=== PATIENT | female | born 1940 | race Caucasian/White ===

== ENCOUNTER → 2016-06-04 | Outpatient (CLI) | payer MEDICARE, BC | LOC: MC.RAD 10:13 | DX: Z12.31 Encounter for screening mammogram for malignant neoplasm of breast (principal); R92.1 Mammographic calcification found on diagnostic imaging of breast ==

== ENCOUNTER → 2017-07-11 | Outpatient (CLI) | payer MEDICARE, BC | LOC: MC.RAD 11:20 | DX: Z12.31 Encounter for screening mammogram for malignant neoplasm of breast (principal) ==

== ENCOUNTER → 2018-07-12 | Outpatient (CLI) | payer MEDICARE, BC | LOC: MC.RAD 10:45 | DX: Z12.31 Encounter for screening mammogram for malignant neoplasm of breast (principal) ==

== ENCOUNTER 2018-11-22 08:48 | Inpatient (IN) | payer MEDICARE, BC ==
[~2018-11-22] VITALS: Ht 152.4 cm; Wt 66.7 kg
--- NOTE | 2018-11-22 09:00 | NUR ---
PATIENT ADMITED INTO ROOM 319 FOR SOTOLOL TRIAL. VSS. HEAD TO TOE ASSESSMENT WNL. 20 GAUGE IV STARTED ON FIRST ATTEMPT. ORDERS ENTERED. TELE INPLACE. RT CALLED FOR EKG. DR.HURTIG REEVES.
[2018-11-22 09:19] VITALS: BP 126/49; PULSE 80; TEMP 98
[2018-11-22] MEDS ORDERED: COUMADIN 5MG5 MG/TAB PO ×2 (09:45→09:46)
[2018-11-22] MEDS ORDERED: PROTONIX 40MG T40 MG PO (09:46)
[2018-11-22] MEDS ORDERED: TOPROL XL 25MG25 MG PO (09:47)
[2018-11-22] MEDS ORDERED: PRINZIDE 12.5 M1 TA1 PO (09:48)
[2018-11-22] MEDS ORDERED: ZOCOR 20MG20 MG PO (09:48)
[2018-11-22] MEDS ORDERED: OMEGA-3 1000 MG1 CAP PO (09:48)
[2018-11-22] MEDS ORDERED: NATURAL E400 IU PO (09:49)
--- NOTE | 2018-11-22 09:59 | NUR ---
LAB AT BEDSIDE.
[2018-11-22 10:15] LABS: BASO % 0.6 % (0.0-2.0); EOS # 0.2 (0.0-0.7); EOS % 3.2 % (0-4.0); GRAN # 4.5 (1.4-6.5); GRAN % 62.5 % (42.2-75.2); HEMOGLOBIN 11.9 g/dl (12.5-16.0); LYMPH # 1.8 (1.2-3.4); MEAN CELL VOLUME 92 fl (80.0-100.0); MEAN CORPUSCULAR HEMOGLOBIN 30 pg (27.0-31.0); MEAN CORPUSCULAR HGB CONC 33 g/dl (33.0-37.0); MEAN PLATELET VOLUME 9.5 fl (7.4-10.4); MONO # 0.6 (0.1-0.6); MONO % 8.3 % (1.7-9.3); PLATELET COUNT 205 K/mm3 (130-400); RED BLOOD COUNT 3.92 M/mm3 (4.10-5.30); REDCELL DISTRIBUTION WIDTH-CV 13.2 % (11.5-14.5)
[2018-11-22 10:18] LABS: INR 3.7 (0.8-3.0)
[2018-11-22 10:25] LABS: HEMATOCRIT 35.9 % (37.0-47.0)
[2018-11-22 10:27] LABS: PROTHROMBIN TIME 45.6 SECONDS (9.7-12.8)
[2018-11-22 10:28] LABS: ALBUMIN 4.3 gm/dL (3.5-5.0); BILIRUBIN,TOTAL 1.2 mg/dL (0.0-1.0); CALCIUM 9.2 mg/dL (8.4-10.2); CREATININE, serum 0.8 (0.52-1.25); MAGNESIUM 1.8 mg/dL (1.6-2.3); POTASSIUM 3.8 mmol/L (3.4-5.0); TOTAL PROTEIN 7.2 gm/dL (6.4-8.2)
[2018-11-22 11:16] VITALS: BP 125/65; PULSE 69; TEMP 97.9
[2018-11-22 15:58] VITALS: BP 125/56; PULSE 66; TEMP 97.6
[2018-11-22 21:00] VITALS: BP 127/57; PULSE 64; TEMP 97.7
--- NOTE | 2018-11-22 23:09 | NUR ---
Shift assessment complete. Second dose of Sotalol given. RT notified of EKG to be done in 2 hours. Denies any pain, SOA.
[2018-11-23] VITALS (14 sets, daily range): BP systolic 104–141; BP diastolic 42–67; PULSE 56–85; TEMP 97.4–98.5
--- NOTE | 2018-11-23 06:25 | NUR ---
Pt states she had a fair night. Awake watching TV. Tele shows SR with HR in the 50's. Denies any needs at this time. Call light in reach. EKG done this AM.
--- NOTE | 2018-11-23 08:06 | NUR ---
Assessment completed, alert/oriented, vital signs stable, denies any chest pain /discomfomrt or palpitations this morning, heart RRR/ SR on tele, distal pulses are palpable, lungs CTA/ denies any SOA or resp.difficulty, EKG done and Qtc 448 this morning, patient is having a lexiscan this mornign and we momo give Sotalol dose after stress test completed, she is NPO / no caffeined, she denies other needs and understands plan of care
[2018-11-23 08:39] LABS: BASO # 0.1 (0.0-0.2); BASO % 0.8 % (0.0-2.0); EOS # 0.3 (0.0-0.7); EOS % 4.1 % (0-4.0); GRAN # 4.6 (1.4-6.5); GRAN % 60.3 % (42.2-75.2); HEMOGLOBIN 11.4 g/dl (12.5-16.0); LYMPH % 26.7 % (20.0-51.0); MEAN CELL VOLUME 93 fl (80.0-100.0); MEAN CORPUSCULAR HEMOGLOBIN 30 pg (27.0-31.0); MEAN CORPUSCULAR HGB CONC 33 g/dl (33.0-37.0); MEAN PLATELET VOLUME 9.6 fl (7.4-10.4); MONO # 0.6 (0.1-0.6); MONO % 7.7 % (1.7-9.3); PLATELET COUNT 202 K/mm3 (130-400); RED BLOOD COUNT 3.76 M/mm3 (4.10-5.30); REDCELL DISTRIBUTION WIDTH-CV 13.1 % (11.5-14.5)
[2018-11-23 08:41] LABS: INR 3.1 (0.8-3.0); PROTHROMBIN TIME 37.6 SECONDS (9.7-12.8)
[2018-11-23 08:44] LABS: HEMATOCRIT 34.9 % (37.0-47.0)
[2018-11-23 08:47] LABS: CALCIUM 9.1 mg/dL (8.4-10.2); CREATININE, serum 0.79 (0.52-1.25); MAGNESIUM 1.9 mg/dL (1.6-2.3); POTASSIUM 4.2 mmol/L (3.4-5.0)
--- NOTE | 2018-11-23 08:54 | NUR ---
SW met with the patient to discuss discharge plan. The patient lives alone outside of [place]. She states that her son, Jasperet Whaley (ph#[phone]), and his family live closeby. She reports independence with ADLs and has a cane, walker, and wheelchair available if needed. The patient's PCP is Dr. Marilu Mchugh and she receives her medications at [facility]. She reports no difficulties obtaining her meds. The patient does not have advanced directives in EMR, but she states that she believes she has them completed and that her DPOA-HC is one of her children. She states that she has three children. Jaspreet Whaley, Destiny Barboza (lives in [place]), and Juanjose Whaley (lives in [place]. The patient plans to return home upon discharge. No additional needs at this time.
--- NOTE | 2018-11-23 11:49 | NUR ---
patient returned from janine scan stress test, has been by to see patient and stated she could go ahead and eat and he would review stress test later today
--- NOTE | 2018-11-23 21:00 | NUR ---
Shift assessment complete. Pt reports feeling much better tonight. States she did not realize that she had not been feeling well. QTC today was 448. Tele shows rate in the 70's. Denies any c/o.
[2018-11-24 05:05] VITALS: BP 127/49; PULSE 55; TEMP 97.9
[2018-11-24 06:10] LABS: BASO # 0.1 (0.0-0.2); BASO % 0.9 % (0.0-2.0); EOS # 0.4 (0.0-0.7); EOS % 5.2 % (0-4.0); GRAN # 3.4 (1.4-6.5); LYMPH # 2.6 (1.2-3.4); LYMPH % 36.9 % (20.0-51.0); MEAN CELL VOLUME 92 fl (80.0-100.0); MEAN CORPUSCULAR HEMOGLOBIN 30 pg (27.0-31.0); MEAN CORPUSCULAR HGB CONC 33 g/dl (33.0-37.0); MEAN PLATELET VOLUME 9.8 fl (7.4-10.4); MONO # 0.6 (0.1-0.6); MONO % 8.6 % (1.7-9.3); PLATELET COUNT 193 K/mm3 (130-400); RED BLOOD COUNT 3.64 M/mm3 (4.10-5.30)
[2018-11-24 06:13] LABS: INR 2.2 (0.8-3.0); PROTHROMBIN TIME 25.8 SECONDS (9.7-12.8)
[2018-11-24 06:15] LABS: HEMATOCRIT 33.4 % (37.0-47.0)
[2018-11-24 06:24] LABS: CALCIUM 8.8 mg/dL (8.4-10.2); CREATININE, serum 0.81 (0.52-1.25); MAGNESIUM 1.9 mg/dL (1.6-2.3); POTASSIUM 3.9 mmol/L (3.4-5.0)
[2018-11-24 07:26] VITALS: BP 122/44; PULSE 55; TEMP 98
--- NOTE | 2018-11-24 09:53 | NUR ---
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 Patient was receptive to prayer and for [employer] to keep her in her prayers.
--- NOTE | 2018-11-24 09:57 | NUR ---
Upon entry, patient was sitting on side of bed eating breakfast. Has no pain. Respirations are even and non labored. States she is feeling the best she has in a long time. No needs identified. Call light and personal items are within reach.
[2018-11-24 13:30] VITALS: BP 141/63; PULSE 55; TEMP 97.9
[2018-11-24] MEDS ORDERED: BETAPACE 80MG80 MG PO (13:34)
--- NOTE | 2018-11-24 15:41 | NUR ---
Patient dischraged home at 1445, daughter is at bedside to drive home. Personal belongings sent with patient. Discharge instructions given with verbalized understanding by patient. Daughter has multiple questions and needed a lot of teaching. Patient left floor via wheelchair and was taken home via private vehicle.
== END 2018-11-24 14:45 | disposition home or self-care (01) | DRG 310 ==
LOC: MEDICAL 08:48
PROVIDERS: ADMIT Internal Medicine Cardiovascular Disease
DX: I48.0 Paroxysmal atrial fibrillation (principal); I47.1 Supraventricular tachycardia; K21.9 Gastro-esophageal reflux disease without esophagitis; I10 Essential (primary) hypertension; E78.5 Hyperlipidemia, unspecified; E11.9 Type 2 diabetes mellitus without complications; I45.10 Unspecified right bundle-branch block; Z79.01 Long term (current) use of anticoagulants
CPT/HCPCS: A9500; J2785

== ENCOUNTER 2018-12-01 09:05 | Observation (INO) | payer MEDICARE, BC ==
[~2018-12-01] VITALS: Ht 152.4 cm; Wt 66.6 kg
[2018-12-01] VITALS (11 sets, daily range): BP systolic 104–160; BP diastolic 45–93; PULSE 44–61; TEMP 97.5–98.3
[~2018-12-01 09:05] MED LIST: BETAPACE 80MG80 MG PO; COUMADIN 5MG5 MG/TAB PO; NATURAL E400 IU PO; OMEGA-3 1000 MG1 CAP PO; PRINZIDE 12.5 M1 TA1 PO; PROTONIX 40MG T40 MG PO; TOPROL XL 25MG25 MG PO; ZOCOR 20MG20 MG PO
[2018-12-01] MEDS ORDERED: TOPROL XL 25MG25 MG PO (11:45)
--- NOTE | 2018-12-01 11:50 | NUR ---
SEE ADMISSION ASSESSMENT B FOR SHIFT ASSESSMENT. CONSENT FORM FOR PACEMAKER PLACEMENT SIGNED AND ON THE PATIENTS CHART. PRE-OP MEDICATIONS GIVEN. PATIENT TAKEN TO BOAT LOADER HELPER VIA BED. WILL WAIT FOR ARRIVAL BACK TO ROOM 357.
--- NOTE | 2018-12-01 12:11 | NUR ---
SEE MERGE REPORT FOR MEDICATION ADMINISTRATION TIMES WELL INTRA/POST SEDATION ASSESSMENTS.
--- NOTE | 2018-12-01 13:15 | NUR ---
PATIENT ARRIVED BACK TO ROOM 357 VIA BED FROM PACEMAKER IMPLANT. POST-OP VSS. LEFT CHEST DRESSING IS CD&I. FAMILY PRESENT AT THE BEDSIDE. PATIENT DENIES ANY OTHER NEEDS AT THIS TIME.
--- NOTE | 2018-12-01 17:13 | NUR ---
POST OP VITAL SIGNS STABLE AND COMPLETE. PATIENT RESTING IN BED. LEFT CHEST PACEMAKER DRESSING IS CD&I. LEFT ARM TO SLING. CALL LIGHT WITHIN REACH. PATIENT DENIES ANY NEEDS AT THIS TIME.
--- NOTE | 2018-12-01 17:35 | NUR ---
REPORT GIVEN TO ARAVIND BOJORQUEZ.
--- NOTE | 2018-12-01 19:10 | NUR ---
NO C/O PAIN AT THIS TIME. CLEAN UP HELPER BANQUET REPORT GIVEN TO NURSE. NO ISSUES OR CONSERNS VOICED.
--- NOTE | 2018-12-01 19:50 | NUR ---
Received report from Suzette. Pt is in bed awake and visiting with son and daughter who are at bedside. Pt states "I would like some pain medication to stay on top of the pain." Pt surgical site is dressed with gauze and tape, no drainage, clean, dry and intact. Assessment complete. Pt voices no concerns other than pain and discomfort. Call light and personal belongings are within reach. No other concerns at this time.
[2018-12-02 00:28] VITALS: BP 104/42; PULSE 60; TEMP 97.7
--- NOTE | 2018-12-02 01:00 | NUR ---
Pt sleeping in bed. Daughter sleeping on sofa in pt room. Pt asked for Tylenol rather than Herrick for pain management to take between Herrick. Tylenol administered, and pt voices no concerns at this time. Call light and personal belongings within reach. No other concerns at this time.
[2018-12-02 04:52] VITALS: BP 125/55; PULSE 59; TEMP 97.7
[2018-12-02 06:40] LABS: BASO # 0.1 (0.0-0.2); BASO % 0.6 % (0.0-2.0); EOS # 0.3 (0.0-0.7); EOS % 3.3 % (0-4.0); GRAN # 4.8 (1.4-6.5); GRAN % 58.1 % (42.2-75.2); HEMOGLOBIN 11.2 g/dl (12.5-16.0); LYMPH # 2.3 (1.2-3.4); LYMPH % 27.6 % (20.0-51.0); MEAN CELL VOLUME 90 fl (80.0-100.0); MEAN CORPUSCULAR HEMOGLOBIN 31 pg (27.0-31.0); MEAN CORPUSCULAR HGB CONC 34 g/dl (33.0-37.0); MONO # 0.8 (0.1-0.6); PLATELET COUNT 176 K/mm3 (130-400); RED BLOOD COUNT 3.66 M/mm3 (4.10-5.30); REDCELL DISTRIBUTION WIDTH-CV 12.8 % (11.5-14.5)
[2018-12-02 06:45] LABS: INR 1.4 (0.8-3.0); PROTHROMBIN TIME 16.3 SECONDS (9.7-12.8)
[2018-12-02 06:46] LABS: HEMATOCRIT 32.9 % (37.0-47.0)
[2018-12-02 06:48] LABS: CALCIUM 8.8 mg/dL (8.4-10.2); CREATININE, serum 0.75 (0.52-1.25); POTASSIUM 3.9 mmol/L (3.4-5.0)
[2018-12-02 07:19] VITALS: BP 121/60; PULSE 59; TEMP 98.1
--- NOTE | 2018-12-02 07:55 | NUR ---
Report given to Suzette. Pt states she is ready to go home. Plan of care discussed for chest xray as well as a EKG and pacer check. Pt states she was in very little pain as she asked for medication to stay on top of the pain. Pt's daughter stayed at bedside throughout the night. Pt voices no further questions or concerns. No further concerns at this time.
[2018-12-02] MEDS ORDERED: CEPHALEXIN500 M1 PO (11:14)
[2018-12-02] MEDS ORDERED: BETAPACE 120MG120 MG PO (11:15)
[2018-12-02 13:00] VITALS: BP 119/57; PULSE 60; TEMP 98.4
--- NOTE | 2018-12-02 16:24 | NUR ---
Plan:To return home with grandson as care support. Patients daughter Destiny is on EMR [phone]. Patient did report having a DPOA. PAtient resides in [place]. Assess: SW met with patient with her daughter Destiny at bedside. Patient gave permission to discuss information infront of daughter. Patient reports that she does have a walker and wheelchair at home, however she does not use them. PAtient did have questions about an emergency lifeline button. Patient reports that her PCP is Dr. Mchugh, and she gets her medications from [facility] with no complications. Patient reports that she does not have a follow up appointment scheduled. Discussed HHS agencies in [facility] and Patient listed 1st choice as [facility]. PAtient denied any other concerns. Action: SW contacted [facility] and Spoke with [phone] who discussed steps for managing care. She reports that she will contact provider to begin referral process. Patients rani was informed.
--- NOTE | 2018-12-02 17:29 | NUR ---
PT DISCHARGED AT THIS TIME. IV AND TELE REMOVED WITHOUT ISSUE. NO C/O PAIN. DAUGHTER PICKED UP PERSCRIPTIONS AT PHARMACY PRIOR TO PT DC'ING. NO ISSUES VOICED THIS AFTERNOON.
== END 2018-12-02 17:30 | disposition home or self-care (01) ==
LOC: MEDICAL 09:05
PROVIDERS: Physician Assistant; ADMIT Hospitalist
DX: I49.5 Sick sinus syndrome (principal); K21.9 Gastro-esophageal reflux disease without esophagitis; I10 Essential (primary) hypertension; E78.5 Hyperlipidemia, unspecified; E11.9 Type 2 diabetes mellitus without complications; I48.0 Paroxysmal atrial fibrillation; Z79.01 Long term (current) use of anticoagulants; Z82.49 Family history of ischemic heart disease and other diseases of the circulatory system; D64.9 Anemia, unspecified
CPT/HCPCS: G0378; G0379; J0690; J2250; J2405; J3010; J3430; J7030; Q9967

== ENCOUNTER 2018-12-02 21:50 | Inpatient (IN) | payer MEDICARE, BC ==
[~2018-12-02] VITALS: Ht 152.4 cm; Wt 63.6 kg
[~2018-12-02 21:50] MED LIST changes: +BETAPACE 120MG120 MG PO; +CEPHALEXIN500 M1 PO
[2018-12-02 23:16] LABS: BASO # 0.1 (0.0-0.2); BASO % 0.6 % (0.0-2.0); EOS # 0.3 (0.0-0.7); EOS % 2.8 % (0-4.0); GRAN # 8.7 (1.4-6.5); GRAN % 72.8 % (42.2-75.2); HEMOGLOBIN 11.8 g/dl (12.5-16.0); LYMPH # 1.8 (1.2-3.4); LYMPH % 15.4 % (20.0-51.0); MEAN CELL VOLUME 88 fl (80.0-100.0); MEAN CORPUSCULAR HEMOGLOBIN 31 pg (27.0-31.0); MEAN CORPUSCULAR HGB CONC 35 g/dl (33.0-37.0); MEAN PLATELET VOLUME 10.1 fl (7.4-10.4); MONO % 8.1 % (1.7-9.3); PLATELET COUNT 173 K/mm3 (130-400); REDCELL DISTRIBUTION WIDTH-CV 12.7 % (11.5-14.5)
[2018-12-02 23:17] LABS: HEMATOCRIT 33.6 % (37.0-47.0)
[2018-12-02 23:21] LABS: INR 1.4 (0.8-3.0); PROTHROMBIN TIME 15.9 SECONDS (9.7-12.8)
[2018-12-02 23:29] LABS: ALANINE AMINOTRANSFERASE 11 U/L (9-52); ALBUMIN 3.9 gm/dL (3.5-5.0); ALKALINE PHOSPHATASE 80 U/L (50-136); ANION GAP 9 mmol/L (7-16); AST,SGOT 24 U/L (15-37); BILIRUBIN,TOTAL 0.9 mg/dL (0.0-1.0); BLOOD UREA NITROGEN 14 mg/dL (7-17); CARBON DIOXIDE 26 mmol/L (22-30); CHLORIDE 94 mmol/L (98-107); CREATININE, serum 0.67 (0.52-1.25); GLUCOSE 141 mg/dL (74-106); LIPASE 53 U/L (23-300); POTASSIUM 3.8 mmol/L (3.4-5.0); SODIUM 129 mmol/L (137-145)
[2018-12-02 23:31] LABS: C-REACTIVE PROTEIN 0.5 mg/dL (0.0-0.9)
[2018-12-02 23:37] LABS: TROPONIN-I < 0.012 ng/mL (0.000-0.035)
[2018-12-03] VITALS (8 sets, daily range): BP systolic 95–146; BP diastolic 42–78; PULSE 58–107; TEMP 97.6–99.7
[2018-12-03 01:10] LABS: COLLECTION METHOD CLEAN CATCH
[2018-12-03 01:15] LABS: MUCOUS Present /lpf; PH 6 (5-8); SQUAMOUS EPITHELIAL None Seen /hpf; URINE APPEARANCE Clear; URINE BACTERIA None Seen /hpf; URINE BILIRUBIN Negative (NEGATIVE); URINE BLOOD 1+ (NEGATIVE); URINE COLOR Yellow; URINE GLUCOSE Negative (NEGATIVE); URINE KETONE Negative (NEGATIVE); URINE LEUKOCYTE ESTERASE Negative (NEGATIVE); URINE NITRATE Negative (NEGATIVE); URINE PROTEIN(semi-quant) Negative (NEGATIVE); URINE RBC 0-2 /hpf; URINE UROBILINOGEN Negative (NEGATIVE)
[2018-12-03 08:02] LABS: BASO # 0.1 (0.0-0.2); BASO % 0.5 % (0.0-2.0); EOS # 0.3 (0.0-0.7); EOS % 2.9 % (0-4.0); GRAN # 6.2 (1.4-6.5); GRAN % 64.6 % (42.2-75.2); LYMPH # 2.1 (1.2-3.4); MEAN CELL VOLUME 90 fl (80.0-100.0); MEAN CORPUSCULAR HEMOGLOBIN 30 pg (27.0-31.0); MEAN CORPUSCULAR HGB CONC 34 g/dl (33.0-37.0); MEAN PLATELET VOLUME 10.1 fl (7.4-10.4); MONO # 0.9 (0.1-0.6); MONO % 9.5 % (1.7-9.3); PLATELET COUNT 165 K/mm3 (130-400); RED BLOOD COUNT 3.63 M/mm3 (4.10-5.30); REDCELL DISTRIBUTION WIDTH-CV 12.7 % (11.5-14.5)
[2018-12-03 08:05] LABS: HEMATOCRIT 32.6 % (37.0-47.0)
[2018-12-03 08:12] LABS: ALBUMIN 3.7 gm/dL (3.5-5.0); BILIRUBIN,TOTAL 1.2 mg/dL (0.0-1.0); CALCIUM 8.7 mg/dL (8.4-10.2); CREATININE, serum 0.74 (0.52-1.25); POTASSIUM 3.7 mmol/L (3.4-5.0); TOTAL PROTEIN 6.4 gm/dL (6.4-8.2)
[2018-12-04 04:00] VITALS: BP 116/58; PULSE 59; TEMP 97.5
[2018-12-04 07:07] VITALS: BP 112/69; PULSE 62; TEMP 97.9
[2018-12-04 07:08] LABS: BASO # 0.1 (0.0-0.2); BASO % 0.8 % (0.0-2.0); EOS # 0.4 (0.0-0.7); EOS % 4.5 % (0-4.0); GRAN # 4.6 (1.4-6.5); GRAN % 57.6 % (42.2-75.2); HEMOGLOBIN 10.5 g/dl (12.5-16.0); LYMPH # 2.1 (1.2-3.4); LYMPH % 26.5 % (20.0-51.0); MEAN CELL VOLUME 90 fl (80.0-100.0); MEAN CORPUSCULAR HEMOGLOBIN 30 pg (27.0-31.0); MEAN CORPUSCULAR HGB CONC 34 g/dl (33.0-37.0); MONO # 0.8 (0.1-0.6); MONO % 10.3 % (1.7-9.3); PLATELET COUNT 154 K/mm3 (130-400); RED BLOOD COUNT 3.45 M/mm3 (4.10-5.30); REDCELL DISTRIBUTION WIDTH-CV 12.9 % (11.5-14.5)
[2018-12-04 07:27] LABS: CALCIUM 8.6 mg/dL (8.4-10.2); CREATININE, serum 0.86 (0.52-1.25); POTASSIUM 3.8 mmol/L (3.4-5.0)
[2018-12-04 10:08] LABS: INR 1.8 (0.8-3.0); PROTHROMBIN TIME 21.7 SECONDS (9.7-12.8)
[2018-12-04 12:27] VITALS: BP 114/61; PULSE 60; TEMP 98
[2018-12-04] MEDS ORDERED: TYLENOL 325MG325 MG PO (16:47)
[2018-12-04] MEDS ORDERED: NORCO 325 MG-51 TAB PO (16:47)
== END 2018-12-04 17:15 | DRG 948 ==
LOC: COL.ER 21:50 → MEDICAL 12-03 02:30
PROVIDERS: Emergency Medicine; Hospitalist; Nurse Practitioner Family; ADMIT Student in an Organized Health Care Education/Training Program
PROC: 4B02XSZ Measurement of Cardiac Pacemaker, External Approach (ICD-10-PCS; principal; 2018-12-03)
DX: G89.18 Other acute postprocedural pain (principal); E87.1 Hypo-osmolality and hyponatremia; D72.829 Elevated white blood cell count, unspecified; I48.0 Paroxysmal atrial fibrillation; K21.9 Gastro-esophageal reflux disease without esophagitis; I45.10 Unspecified right bundle-branch block; I10 Essential (primary) hypertension; E78.5 Hyperlipidemia, unspecified; E11.9 Type 2 diabetes mellitus without complications; D64.9 Anemia, unspecified; Z79.01 Long term (current) use of anticoagulants; Z95.0 Presence of cardiac pacemaker
CPT/HCPCS: 99222-AI; 99239; J2405; J2543; J3010; J3370; J7030; J7050

== ENCOUNTER → 2019-09-17 | Outpatient (CLI) | payer MEDICARE, BC ==
[~2019-09-17] MED LIST changes: +NORCO 325 MG-51 TAB PO; +TYLENOL 325MG325 MG PO
== END ==
LOC: MC.RAD 09:56
DX: Z12.31 Encounter for screening mammogram for malignant neoplasm of breast (principal)

== ENCOUNTER 2020-10-07 08:08 | Day surgery (SDC) | payer MEDICARE, BC ==
[~2020-10-07] VITALS: Ht 152.4 cm; Wt 71.9 kg
[2020-10-07] MEDS ORDERED: PRINZIDE 25 MG-1 TAB PO (08:50)
[2020-10-07] MEDS ORDERED: COUMADIN 22.5 MG/TAB PO (08:52)
[2020-10-07] MEDS ORDERED: VITAMIN C500 MG PO (08:53)
[2020-10-07] MEDS ORDERED: MAG-OX 400400 MG/TAB PO (08:53)
[2020-10-07] MEDS ORDERED: VITAMIN D31000 I1 PO (08:54)
[2020-10-07] MEDS ORDERED: PHARMASSURE CHE30 MG PO (08:55)
[2020-10-07 09:25] VITALS: BP 133/72; PULSE 71; TEMP 97.3
[2020-10-07 10:35] VITALS: BP 130/69; PULSE 80; TEMP 97.9
--- NOTE | 2020-10-07 10:35 | NUR ---
PATIENT BROUGHT BACK FROM ENDO SUITE VIA CART. PLACED ON MONITORS, VITAL SIGNS STABLE. IV INFUSING TO RIGHT AC WITHOUT DIFFICULTY. YOCASTA AT BEDSIDE FOR REPORT. SON AT BEDSIDE TO DRIVE PATIENT HOME. DR. AGUILAR AT BEDSIDE TO EXPLAIN RESULTS. PATIENT STATES SHE WANTS COFFEE, AND A MUFFIN. WARM BLANKET PROVIDED, CALL MIMS WITHIN REACH. WILL CONTINUE TO MONITOR.
[2020-10-07 10:50] VITALS: BP 132/74; PULSE 80
--- NOTE | 2020-10-07 10:50 | NUR ---
PATIENT TOLERATING FOOD AND DRINK WITHOUT DIFFICULTY. WILL CONTINUE TO MONITOR.
[2020-10-07 11:05] VITALS: BP 126/64; PULSE 88
--- NOTE | 2020-10-07 11:05 | NUR ---
PT STATES SHE FEELS READY TO GO HOME AT THIS TIME. IV REMOVED. DISCHARGE INSTRUCTIONS REVIEWED WITH PATIENT AND SON. PATIENT TO GET DRESSED AT THIS TIME.
--- NOTE | 2020-10-07 11:20 | NUR ---
PATIENT BROUGHT DOWN TO LOBBY VIA WHEEL CHAIR. SON AT FRONT DOOR TO DRIVE PATIENT HOME. ALL BELONGINGS IN HAND.
== END 2020-10-07 11:20 | disposition home or self-care (01) ==
LOC: SDCO 08:08
DX: Z12.11 Encounter for screening for malignant neoplasm of colon (principal); K55.20 Angiodysplasia of colon without hemorrhage; K64.0 First degree hemorrhoids; K57.30 Diverticulosis of large intestine without perforation or abscess without bleeding; M19.90 Unspecified osteoarthritis, unspecified site; I48.91 Unspecified atrial fibrillation; E11.9 Type 2 diabetes mellitus without complications; K21.9 Gastro-esophageal reflux disease without esophagitis; E78.5 Hyperlipidemia, unspecified; I10 Essential (primary) hypertension; I34.0 Nonrheumatic mitral (valve) insufficiency; M19.049 Primary osteoarthritis, unspecified hand; G47.33 Obstructive sleep apnea (adult) (pediatric); Z99.89 Dependence on other enabling machines and devices; Z79.01 Long term (current) use of anticoagulants; Z90.89 Acquired absence of other organs; Z79.899 Other long term (current) drug therapy
CPT/HCPCS: J7120

== ENCOUNTER → 2020-10-14 | Outpatient (CLI) | payer MEDICARE, BC ==
[~2020-10-14] MED LIST changes: +COUMADIN 22.5 MG/TAB PO; +MAG-OX 400400 MG/TAB PO; +PHARMASSURE CHE30 MG PO; +PRINZIDE 25 MG-1 TAB PO; +VITAMIN C500 MG PO; +VITAMIN D31000 I1 PO
== END ==
LOC: MC.RAD 09:07
DX: Z12.31 Encounter for screening mammogram for malignant neoplasm of breast (principal)

== ENCOUNTER 2023-02-28 07:11 | Inpatient (IN) | payer MEDICARE, BC ==
[~2023-02-28] VITALS: Ht 152.5 cm; Wt 97.8 kg
[2023-03-09 08:55] VITALS: BP 152/78; PULSE 80; TEMP 97.4
[2023-03-09] MEDS ORDERED: COUMADIN 1MG1 MG/TAB PO (09:46)
[2023-03-09] MEDS ORDERED: ZEBETA 5MG5 MG PO (09:48)
[2023-03-09] MEDS ORDERED: ZYRTEC 10MG10 MG PO (09:48)
[2023-03-09] MEDS ORDERED: PACERONE400 MG PO (09:48)
--- NOTE | 2023-03-09 10:10 | NUR ---
Pt arrived to room 304 at approximately 0855 as a direct admit for Tikosyn initiation. Tele in place. #20g started to RAC. Intake, assessment and med rec completed. Notified cardiopulmonary that EKG was needed. Daughter at bedside.
[2023-03-09 10:59] LABS: CALCIUM 8.7 mg/dL (8.4-10.2); CREATININE, serum 0.87 mg/dL (0.57-1.11); MAGNESIUM 1.8 mg/dL (1.6-2.6); POTASSIUM 4.6 mmol/L (3.5-4.5)
[2023-03-09 11:03] VITALS: BP 152/77; PULSE 74; TEMP 97.7
[2023-03-09 12:09] LABS: INR 3.3 (0.8-3.0); PROTHROMBIN TIME 35.3 SECONDS (9.7-12.8)
[2023-03-09 12:51] LABS: ALANINE AMINOTRANSFERASE 72 U/L (0-55); AST,SGOT 60 U/L (5-34)
[2023-03-09 14:30] VITALS: BP_SYST 152
[2023-03-09 16:00] VITALS: BP 125/79; PULSE 69; TEMP 97.6
[2023-03-09 17:08] VITALS: BP_SYST 125
--- NOTE | 2023-03-09 19:14 | NUR ---
Pt independent in room. Daughter Destiny at bedside throughout day. Silvadene applied to sunburn on face- pt reports relief. Denies pain or needs.
[2023-03-09 20:00] VITALS: BP 145/71; PULSE 75; TEMP 97.8
--- NOTE | 2023-03-09 23:48 | NUR ---
patient lying in bed, alert and oriented x4. pt denies chest pain and shortness of breath. IV in RAC is patent, site is clean dry and intact. 2224, Dr. Montaño notified of INR level of 3.3, per orders coumadin 2.5 mg dose held at this time. pt ambulating with steady gait, some redness from sunburn on facial cheeks and nose, ordered cream applied. no additional remarkable skin findings noted. pt has no further needs, questions, or concerns at this time. call light within reach. will continue to monitor.
[2023-03-10] VITALS (13 sets, daily range): BP systolic 101–169; BP diastolic 45–93; PULSE 69–81; TEMP 97.3–98.2
[2023-03-10 07:31] LABS: CALCIUM 8.5 mg/dL (8.4-10.2); CREATININE, serum 0.88 mg/dL (0.57-1.11); MAGNESIUM 1.8 mg/dL (1.6-2.6); POTASSIUM 4.1 mmol/L (3.5-4.5)
[2023-03-10 07:57] LABS: BASO # 0.1 K/mm3 (0.0-0.2); BASO % 0.7 % (0.0-2.0); EOS # 0.2 K/mm3 (0.0-0.7); EOS % 3.1 % (0.0-4.0); GRAN # 4.9 K/mm3 (1.4-6.5); GRAN % 69.4 % (42.2-75.2); HEMOGLOBIN 11.9 g/dl (12.5-16.0); LYMPH % 14.8 % (20.0-51.0); MEAN CELL VOLUME 91 fl (80.0-100.0); MEAN CORPUSCULAR HEMOGLOBIN 32 pg (27-31); MEAN CORPUSCULAR HGB CONC 35 g/dl (33.0-37.0); MEAN PLATELET VOLUME 10.4 fl (7.4-10.4); MONO # 0.8 K/mm3 (0.1-0.6); MONO % 11.4 % (1.7-9.3); PLATELET COUNT 171 K/mm3 (130-400); RED BLOOD COUNT 3.75 M/mm3 (4.10-5.30); REDCELL DISTRIBUTION WIDTH-CV 14.9 % (11.5-14.5)
[2023-03-10 08:05] LABS: HEMATOCRIT 34.2 % (37.0-47.0)
[2023-03-10 08:06] LABS: PROTHROMBIN TIME 32.1 SECONDS (9.7-12.8)
[2023-03-10] MEDS ORDERED: PRINIVIL20 MG PO (12:35)
--- NOTE | 2023-03-10 12:51 | NUR ---
TALIA Student identified self as SW Student and completed intake with patient and dtr Destiny at bedside. Patient lives in [place] alone. Patient stated that her son Jaspreet (ph#[phone]) and daughter Destiny (ph#[phone]) are best point of contacts for her. Patient sees Dr. Marilu Mchugh for primary care and prefers to obtain medications from [facility]. Patient stated that she has not had any issues with affording medications. Patient stated that she does have reliable transportation when needed. Patient stated that she is unsure if she has completed a DPOA-HC previously. She stated this is something she would have to check with her medical research associate on. Patient stated that she does not utilize any DME and is independent with ADLs. Patient is covered by Medicare and [employer] for insurance. Patient stated that she plans to return home at time of discharge. Discharge Plan: Home
--- NOTE | 2023-03-10 14:58 | NUR ---
D: Initial visit: Shagger stopped by room during rounds. Pt was resting and content with daughter in the room. A: Pt has no needs right now. She is here making sure a new set of drugs will be ok for her condition. Shagger had a great talk with pt and her daughter. Both appreciated the visit. P: Shagger informed pt that if she needed anything to let her nurse know. Shagger will follow up as needed.
--- NOTE | 2023-03-10 15:47 | NUR ---
Pt c/o headache. Order obtained for Tylenol prn.
--- NOTE | 2023-03-10 19:23 | NUR ---
Patient reports relief of headache. Sitting at side of bed, finishing supper. Denies needs at this time. Bedside report given to ARAVIND Hyman.
[2023-03-11 00:37] VITALS: BP_SYST 106
--- NOTE | 2023-03-11 00:37 | NUR ---
patient lying in bed, alert and oriented x4. pt denies chest pain and shortness of breath. IV in RAC is patent, site is clean dry and intact. slight redness to nose and cheeks from sunburn, silvadene cream applied, no additional skin abnormalities noted. pt ambulates in room with steady gait. pt has no further needs, questions or concerns at this time. call light within reach. will continue to monitor.
[2023-03-11 02:30] VITALS: BP 118/72; PULSE 84; TEMP 97.8
[2023-03-11 04:13] VITALS: BP_SYST 118
--- NOTE | 2023-03-11 06:30 | NUR ---
Pt resting in bed. Pt is on RA. Pt is A-Paced on tele. Pt is AxOx3. Pt has call light within reach and instructed to call wtih all needs. Pt is going to order breakfast.
[2023-03-11 07:13] VITALS: BP 126/71; PULSE 71; TEMP 98.2
[2023-03-11 07:32] LABS: BASO % 0.6 % (0.0-2.0); EOS # 0.2 K/mm3 (0.0-0.7); EOS % 2.9 % (0.0-4.0); GRAN # 4.8 K/mm3 (1.4-6.5); GRAN % 71.9 % (42.2-75.2); HEMOGLOBIN 12.1 g/dl (12.5-16.0); LYMPH # 0.9 K/mm3 (1.2-3.4); LYMPH % 13.9 % (20.0-51.0); MEAN CELL VOLUME 91 fl (80.0-100.0); MEAN CORPUSCULAR HEMOGLOBIN 32 pg (27-31); MEAN CORPUSCULAR HGB CONC 35 g/dl (33.0-37.0); MONO # 0.7 K/mm3 (0.1-0.6); MONO % 9.9 % (1.7-9.3); PLATELET COUNT 177 K/mm3 (130-400); RED BLOOD COUNT 3.84 M/mm3 (4.10-5.30); REDCELL DISTRIBUTION WIDTH-CV 15.1 % (11.5-14.5)
[2023-03-11 07:34] LABS: HEMATOCRIT 34.9 % (37.0-47.0)
[2023-03-11 07:35] LABS: INR 2.6 (0.8-3.0)
[2023-03-11 07:48] LABS: CALCIUM 9.1 mg/dL (8.4-10.2); CREATININE, serum 0.82 mg/dL (0.57-1.11); MAGNESIUM 1.8 mg/dL (1.6-2.6); POTASSIUM 4.2 mmol/L (3.5-4.5)
[2023-03-11 09:00] VITALS: BP_SYST 126
--- NOTE | 2023-03-11 09:34 | NUR ---
08-SPOKE WITH CLINTON NAZARIO WITH CARDIOLOGY, QTC 501. OKAY TO GIVE TIKOSYN PER CLINTON NAZARIO. 899-ANDREW RT NOTIFIED THAT TIKOSYN GIVEN AND EKG DUE TO AT 1100.
[2023-03-11] MEDS ORDERED: TIKOSYN0.25 MG PO ×3 (10:14→12:18)
--- NOTE | 2023-03-11 11:39 | NUR ---
Pt's QTC 519, Dottie NAZARIO with cardiology notified.
--- NOTE | 2023-03-11 11:53 | NUR ---
IV AND TELE DC'D. DISCHARGE INSTRUCTIONS DISCUSSED WITH PT AND DAUGHTER. DISCUSSED NEW MED TIKOSYN AND TO BE PICKED UP AT HER PHARMACY. DISCUSSED FOLLOW UP APPOINTMENT. ALL QUESTIONS ANSWERED.
== END 2023-03-11 13:15 | disposition home or self-care (01) | DRG 310 ==
LOC: MEDICAL 03-09 07:08
PROVIDERS: ADMIT Internal Medicine Cardiovascular Disease
DX: I48.0 Paroxysmal atrial fibrillation (principal); E11.9 Type 2 diabetes mellitus without complications; K21.9 Gastro-esophageal reflux disease without esophagitis; E78.5 Hyperlipidemia, unspecified; I10 Essential (primary) hypertension; D64.9 Anemia, unspecified; H26.9 Unspecified cataract; M19.90 Unspecified osteoarthritis, unspecified site; I45.10 Unspecified right bundle-branch block; I34.0 Nonrheumatic mitral (valve) insufficiency; M85.80 Other specified disorders of bone density and structure, unspecified site; Z95.0 Presence of cardiac pacemaker; Z85.828 Personal history of other malignant neoplasm of skin; Z79.01 Long term (current) use of anticoagulants; Z79.899 Other long term (current) drug therapy; Z88.3 Allergy status to other anti-infective agents; Z88.8 Allergy status to other drugs, medicaments and biological substances; Z23 Encounter for immunization